=== PATIENT | female | born 1980 | race Caucasian/White ===

== ENCOUNTER 2024-05-03 13:40 | Inpatient (IN) | payer MEDICAID, OTHER ==
[~2024-05-03] VITALS: Ht 160 cm; Wt 52.5 kg
[2024-05-03] MEDS ORDERED: FLUO-365 PO (13:50)
[2024-05-03] MEDS ORDERED: ACET1CAP2 PO (13:50)
[2024-05-03] MEDS ORDERED: ADDE25CA PO (13:50)
[2024-05-03 16:14] LABS: BASO # 0.1 10^3/uL (0.0-0.2); BASO % 0.6 % (0.0-1.0); EOS # 0.1 10^3/uL (0.0-0.5); EOS % 0.6 % (0.0-3.0); HEMATOCRIT 41.8 % (36.0-47.0); HEMOGLOBIN 14.4 g/dl (12.0-15.5); LYMPH # 2.1 10^3/uL (1.5-5.0); LYMPH % 22.3 % (24.0-44.0); MEAN CORPUSCULAR HEMOGLOBIN 31.5 pg (27.0-33.0); MEAN CORPUSCULAR HGB CONC 34.4 g/dl (32.0-36.5); MEAN CORPUSCULAR VOLUME 91.5 fl (80.0-96.0); MONO # 0.7 10^3/uL (0.0-0.8); MONO % 7.3 % (2.0-8.0); NEUTROPHILS # 6.6 10^3/uL (1.5-8.5); NEUTROPHILS % 69.1 % (36.0-66.0); PLATELET COUNT, AUTOMATED 356 10^3/uL (150-450); RED BLOOD COUNT 4.57 10^6/uL (4.00-5.40); WHITE BLOOD COUNT 9.6 10^3/uL (4.0-10.0)
[2024-05-03 16:18] LABS: ERYTHROCYTE SEDIMENTATION RATE < 1 mm/hr (0-20)
[2024-05-03] MEDS: MECLIZINE 25 MG TABLET PO ONE (16:25)
[2024-05-03 16:38] LABS: C REACTIVE PROTEIN QUANTITATIV < 0.40 MG/DL (<1.0); ETHYL ALCOHOL (ETHANOL) < 0.003 % (0.000-0.010)
[2024-05-03 16:40] LABS: ALBUMIN 3.5 G/DL (3.2-5.2); ALKALINE PHOSPHATASE 62 U/L (46-116); ALT/SGPT 17 U/L (7.0-40); AST/SGOT 16 U/L (<34); BILIRUBIN,DIRECT < 0.1 MG/DL (<0.4); BILIRUBIN,TOTAL 0.4 MG/DL (0.3-1.2); BLOOD UREA NITROGEN 7 MG/DL (9-23); CALCIUM LEVEL 9.2 MG/DL (8.5-10.1); CARBON DIOXIDE LEVEL 30 MMOL/L (20-31); CHLORIDE LEVEL 105 MMOL/L (98-107); CREATININE FOR GFR 0.66 MG/DL (0.55-1.30); GLOMERULAR FILTRATION RATE > 60.0 (>58); GLUCOSE, FASTING 95 MG/DL (60-100); POTASSIUM SERUM 4.2 MMOL/L (3.5-5.1); SALICYLATE LEVEL < 3.0 MG/DL (<30); SODIUM LEVEL 140 MMOL/L (136-145); TOTAL PROTEIN 6.6 G/DL (5.7-8.2)
[2024-05-03 16:41] LABS: THYROID STIMULATING HORMONE 1.729 uIU/ML (0.55-4.78)
[2024-05-03 18:16] LABS: BARBITURATES URINE NEGATIVE (NEGATIVE); COCAINE METABOLITE URINE NEGATIVE (NEGATIVE); METHADONE URINE NEGATIVE (NEGATIVE); OPIATES URINE NEGATIVE (NEGATIVE); PHENCYCLIDINE URINE NEGATIVE (NEGATIVE)
[2024-05-03 18:17] LABS: BENZODIAZEPINES URINE NEGATIVE (NEGATIVE)
[2024-05-03 18:18] LABS: AMPHETAMINES LEVEL URINE POSITIVE (NEGATIVE); CANNABINOIDS URINE POSITIVE (NEGATIVE)
[2024-05-03] MEDS: ALPRAZolam 0.5 MG TAB PO ONE (21:39)
[2024-05-03] MEDS: NICOTINE 21MG/24HR 1 EA TRANSDERMAL TD ONE (21:39)
[2024-05-03] MEDS ORDERED: HOME MED LIST COMPLETE! XX SCH (22:10)
[2024-05-03] MEDS ORDERED: IBUPROFEN 400MG TAB PO PRN (23:25)
[2024-05-03] MEDS ORDERED: MOM 30ML SUSPENSION UDC PO PRN (23:25)
[2024-05-03] MEDS ORDERED: MAALOX 30 ML SUSP *UDC PO PRN (23:25)
[2024-05-04] MEDS: MECLIZINE 25 MG TABLET PO ONE (00:30)
[2024-05-04 06:17] VITALS: BP 126/62; TEMP 97.1
[2024-05-04] MEDS ORDERED: LORazepam 1 MG TAB PO PRN (09:10)
[2024-05-04] MEDS: diphenhydrAMINE 25MG CAP PO PRN (10:49)
[2024-05-04 15:31] VITALS: BP 110/62; TEMP 97.8; O2SAT 100
[2024-05-04] MEDS: risperiDONE 2 MG TAB PO SCH (20:05)
[2024-05-04] MEDS: NICOTINE 21MG/24HR 1 EA TRANSDERMAL TD PRN (20:26)
[2024-05-05 06:40] VITALS: BP 122/62; TEMP 97.5; O2SAT 99
[2024-05-05 14:46] VITALS: BP 147/62; TEMP 98.1; O2SAT 99
[2024-05-05] MEDS: traZODone 50 MG TAB PO PRN (20:21)
[2024-05-06 06:47] VITALS: BP 99/57; TEMP 98.6; O2SAT 98
[2024-05-06 15:34] VITALS: BP 129/74; TEMP 99; O2SAT 100
[2024-05-07 05:56] VITALS: BP 100/51; TEMP 97.8; O2SAT 97
[2024-05-07 15:32] VITALS: BP 125/66; TEMP 98.4; O2SAT 99
[2024-05-08 05:57] VITALS: BP 107/56; TEMP 97.9; O2SAT 96
[2024-05-08 15:47] VITALS: BP 128/66; TEMP 99; O2SAT 97
[2024-05-09 06:23] VITALS: BP 112/69; TEMP 98.3; O2SAT 99
[2024-05-09 15:48] VITALS: BP 114/62; TEMP 97.8; O2SAT 100
[2024-05-10 06:29] VITALS: BP 107/57; TEMP 98.2; O2SAT 97
[2024-05-10] MEDS ORDERED: RISP2TAB32 PO (09:36)
[2024-05-10] MEDS: ACETAMINOPHEN TAB 650MG DOSE (2X325MG) PO PRN (10:59)
== END 2024-05-10 12:54 | disposition home or self-care (01) | DRG 753 ==
LOC: M ED 13:40 → M ED INP 23:24 → M PSY 05-04 01:08
PROVIDERS: ADMIT Psychiatry & Neurology Psychiatry; ATTEND Psychiatry & Neurology Psychiatry
DX: F31.2 Bipolar disorder, current episode manic severe with psychotic features (principal); F17.200 Nicotine dependence, unspecified, uncomplicated; G47.00 Insomnia, unspecified; F90.9 Attention-deficit hyperactivity disorder, unspecified type; Z79.899 Other long term (current) drug therapy; Z90.79 Acquired absence of other genital organ(s)